=== PATIENT | female | born 1945 | race Caucasian/White ===

== ENCOUNTER 2018-02-13 13:06 | Emergency (ER) | payer MEDICARE, BC ==
[2018-02-13 13:56] VITALS: BP 147/68
--- NOTE | 2018-02-13 13:56 | UC ---
Shoulder Pain HPI - HPI Summary HPI Summary: On February 13 patient was pulling herself up into her son's truck With her left arm had a sudden onset of pain in her left shoulder. Beginning February 10 patient noticed decreased range of motion in her shoulder and continued pain tender to touch no deformity neuro motor and circulation intact distally no numbness or tingling distally - History of Current Complaint Chief Complaint: UCUpperExtremity Stated Complaint: LEFT SHOULDER COMPLAINT Time Seen by Provider: 02/13/18 13:50 Hx Obtained From: Patient ?: No Onset/Duration: Sudden Onset, Lasting Days - 3, Still Present Timing: Constant Severity Initially: Mild Severity Currently: Mild Location Of Pain: Is Discrete @ Pain Intensity: 4 Pain Scale Used: 0-10 Numeric Character: Throbbing, Spasmodic, Stiffness Aggravating Factor(s): Movement Alleviating Factor(s): OTC Meds Associated Signs And Symptoms: Positive: Negative Related History: Dominant Hand Right - Allergies/Home Medications Allergies/Adverse Reactions: Allergies Allergy/AdvReac Type Severity Reaction Status Date / Time No Known Allergies Allergy Verified 11/26/12 06:51 Home Medications: Home Medications Biotin 5,000 mcg PO BID 02/13/18 [History Confirmed 02/13/18] Oxybutynin TAB* [Ditropan TAB*] 5 mg PO BID 02/13/18 [History Confirmed 02/13/18 ] Terbinafine HCl 250 mg PO DAILY 02/13/18 [History Confirmed 02/13/18] amLODIPine TAB* [Norvasc 5 mg TAB*] 10 mg PO DAILY 02/13/18 [History Confirmed 02/13/18] PMH/Surg Hx/FS Hx/Imm Hx Previously Healthy: No Endocrine History: Diabetes, Dyslipidemia Cardiovascular History: Hypertension GI/ History: Gastroesophageal Reflux - Surgical History Surgical History: Yes Surgery Procedure, Year, and Place: DILATION AND CURETTAGE, HYSTEROSCOPY, X 3, [facility]. 1967, 1971 CSECTION X 2, [facility]. 1984, 1986 CSECTION X 2, [facility]. Left knee replacement - Family History Known Family History: Positive: None - Social History Occupation: Retired Lives: With Family Alcohol Use: None Substance Use Type: None Smoking Status (MU): Never Smoked Tobacco Review of Systems Constitutional: Negative Skin: Negative Eyes: Negative ENT: Negative Respiratory: Negative Cardiovascular: Negative Gastrointestinal: Negative Genitourinary: Negative Motor: Decreased ROM - left shoulder Neurovascular: Negative Musculoskeletal: Arthralgia - Left shoulder Neurological: Negative Psychological: Negative Is Patient Immunocompromised?: No All Other Systems Reviewed And Are Negative: Yes Physical Exam Triage Information Reviewed: Yes Appearance: Well-Appearing, Well-Nourished, Pain Distress Vital Signs: Initial Vital Signs Temp 97.7 F 02/13/18 13:42 Pulse 69 02/13/18 13:42 Resp 20 02/13/18 13:42 BP 147/68 02/13/18 13:42 Pulse Ox 96 02/13/18 13:42 Vital Signs Reviewed: Yes Eye Exam: Normal Eyes: Positive: Conjunctiva Clear ENT Exam: Normal ENT: Positive: Normal ENT inspection, Hearing grossly normal. Negative: Nasal drainage, Trismus, Muffled voice, Hoarse voice Dental Exam: Normal Neck exam: Normal Neck: Positive: Supple, Nontender, No Lymphadenopathy Respiratory Exam: Normal Respiratory: Positive: Chest non-tender, Lungs clear, Normal breath sounds, No respiratory distress, No accessory muscle use Cardiovascular Exam: Normal Cardiovascular: Positive: RRR, Pulses Normal, Brisk Capillary Refill Musculoskeletal Exam: Other Musculoskeletal: Positive: No Edema, Strength Limited @ - Left shoulder, ROM Limited @ - Left shoulder Neurological Exam: Normal Neurological: Positive: Alert, Muscle Tone Normal Psychological Exam: Normal Skin Exam: Normal Diagnostics - Radiology No standard instances Xray Interpretation: Positive (See Comments) Radiology Interpretation Completed By: Radiologist - Arthritis in the AC joint Shoulder Course/Dx - Course Assessment/Plan: Patient states she takes Tylenol ibuprofen for pain. Plan will be to follow up with Dr. Ravi, recheck blood pressure with PCP - Differential Dx/Diagnosis Provider Diagnoses: Left shoulder pain, hypertension poor control Discharge - Sign-Out/Discharge Documenting (check all that apply): Discharge - Discharge Plan Condition: Stable Disposition: HOME Patient Education Materials: Osteoarthritis (ED), Hypertension (ED), Shoulder Pain (ED) Referrals: Juan R Ravi MD [Medical Doctor] - 3 Days Heath Aguilar MD [Primary Care Provider] - 2 Weeks - Billing Disposition and Condition Condition: STABLE Disposition: HOME
--- NOTE | 2018-02-13 14:25 | RAD ---
Indication: Left shoulder pain. 4 views of left shoulder demonstrates AC joint arthritis. There is no fracture noted. No other bone or joint abnormality is noted. IMPRESSION: AC joint arthritis without evidence of fracture.
== END 2018-02-13 14:38 | disposition home or self-care (01) ==
LOC: UCCORT 13:06
DX: M25.512 Pain in left shoulder (principal); X50.0XXA Overexertion from strenuous movement or load, initial encounter; Y93.89 Activity, other specified; Y92.9 Unspecified place or not applicable; I10 Essential (primary) hypertension; E11.9 Type 2 diabetes mellitus without complications
CPT/HCPCS: 99212; G0463

== ENCOUNTER → 2018-05-15 05:57 | Day surgery (SDC) | payer MEDICARE, BC ==
--- NOTE | 2018-04-25 20:20 | HP ---
CC: Heath Aguilar MD, [place] * ADMISSION HISTORY AND PHYSICAL: DATE OF ADMISSION: 05/15/18 ATTENDING SURGEON: Min Torres MD * (DAVID Miranda, dictating). CHIEF COMPLAINT: Ventral incisional hernia. HISTORY OF PRESENT ILLNESS: This is a 72-year-old female who has known of a ventral hernia for approximately the past 2-1/2 years. She first noticed it at home as a bulge in the mid abdomen to the left of the upper end of her prior C- section scar. It has remained essentially the same and she denies any pain or other associated symptoms. It is sometimes tender when pressed upon. She has not had anything to suggest incarceration or strangulation. An ultrasound done in September 2015 confirmed the presence of what appeared to be a fat containing hernia. She had been seen by Dr. Torres on a couple of occasions including soon after the discovery of the hernia a year ago in October and October of this year. Exam has remained about the same with a mildly tender mass as described above, partially reducible, and recommendation made for repair. The patient states that she understands the indications for repair and the methods thereof, as well as the risks, benefits and alternatives. She would like to proceed as scheduled with laparoscopic repair of ventral incisional hernia with mesh. Dr. Torres was also in to see her today for reexamination and confirmation plan. PAST MEDICAL HISTORY: Hypertension, type 2 diabetes, GERD, osteoarthritis, hyperlipidemia, overactive bladder, morbid obesity. She denies history of heart disease or chronic lung disease. No personal history of bleeding or blood clot problems. PAST SURGICAL HISTORY: Previous surgeries include x4, all via lower midline incision; left total knee arthroplasty in 2015; tonsillectomy remotely. CURRENT MEDICATIONS: 1. Metoprolol succinate extended release 25 mg b.i.d. 2. Valsartan/hydrochlorothiazide 320/12.5 once daily. 3. Amlodipine 10 mg once daily. 4. Rosuvastatin 5 mg once daily. 5. Metformin 500 mg 2 tablets b.i.d. 6. Glyburide 5 mg one half tablet b.i.d. 7. Oxybutynin 5 mg b.i.d. 8. Pantoprazole 40 mg once daily. 9. Multivitamin once daily. 10. Biotin 5000 mcg b.i.d. DRUG ALLERGIES: None known. FAMILY HISTORY: Negative for anesthesia problems, bleeding or clotting disorders. SOCIAL HISTORY: The patient is . 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 She denies use of tobacco, alcohol, or other recreational drugs. REVIEW OF SYSTEMS: General: No recent constitutional symptoms or acute illnesses. HEENT: She does have a pending appointment for her eyes and possible future cataract surgery. Cardiovascular: She is treated for hypertension. No chest pain, palpitations, history of MD or angina. Respiratory: No history of asthma, chronic cough, or shortness of breath. GI: GERD symptoms, controlled. No lower GI symptoms. I did not inquire as to her most recent colonoscopy. : No problems reported. Endocrine: Type 2 diabetes. No thyroid dysfunction. PHYSICAL EXAMINATION GENERAL: Morbidly obese female, in no acute distress. VITAL SIGNS: Height 60 inches, weight 241 pounds, BMI of 47. Blood pressure 140/82, pulse 74, respirations 18. HEENT: Pupils equal, round, and reactive. EOMs intact. No conjunctival pallor. Oropharynx: She has a partial upper denture. Remaining teeth in fair to good repair. No intraoral lesions. NECK: No thyromegaly or masses. No palpable cervical or supraclavicular lymphadenopathy. BREASTS: Not examined. LUNGS: Clear to auscultation. No rales or wheezes. HEART: Regular rate and rhythm. No murmur appreciated. ABDOMEN: Obese. Well-healed but scarred lower midline incision from prior C- sections. There is a visible and palpable bulge to the left of midline at the superior aspect of the incisions. This is mildly tender to deep palpation and feels to be only partially reducible. There are no other palpable masses or organomegaly. GENITALIA: Not done. RECTAL: Not done. BACK: No spinous process or CVA tenderness. EXTREMITIES: No edema. NEUROLOGICAL: Grossly intact. SKIN: Warm and dry. No suspicious rashes or lesions noted. IMPRESSION: Ventral incisional hernia. PLAN: Laparoscopic repair of ventral incisional hernia with mesh. DAVID MIRANDA [id number]/[facility] #: [id number] M[facility]ER HOSPITALSilvia
[~2018-05-15 05:57] MED LIST: Atracurium* 10 MG/ML 10 ML VIAL ONE; Buffered Lidocaine 0.9% SYRIN* 5 ML/SYR SYRINGE INTRADERM ONE; Bupivacaine 0.25% W/EPI* 10 ML SDV ONE; Dexamethasone IV* 4 MG/ML 1 ML (4 MG) IV SLOW PU ONE; Dexamethasone IV* 4 MG/ML 1 ML (4 MG) ONE; EPHEDrine (Pressors)* 50 MG/ML VIAL ONE; Famotidine IV* 10 MG/ML 2 ML (20 mg) IV SLOW PU ONE; Famotidine IV* 10 MG/ML 2 ML (20 mg) ONE; Glycopyrrolate IV* 0.2 MG/ML 1 ML VIAL ONE; Heparin VIAL(*) 5000 UNITS/ML VIAL (FIVE THOUSAND) ONE; Ketorolac INJ* 30 MG/ML 1 ML VIAL ONE; Levalbuterol 0.63MG/3ML NEB* UNIT OF USE INH ONE; Metoprolol Succinate XL TAB* 25 MG PO ONE; Midazolam* 1 MG/ML 5 ML VIAL (5 MG) ONE; Naloxone* 0.4 MG/ML 1 ML VIAL IV PRN; Ondansetron INJ* 2 MG/ML VIAL IV PRN; Ondansetron INJ* 2 MG/ML VIAL ONE; Phenylephrine INJ* 10 MG/ML 1 ML VIAL (10 MG) ONE; Propofol* 10 MG/ML 20 ML BTL IV PUSH ONE; ceFAZolin 2 GM PREMIX (*) 2 GM/50 ML BAG IVPB ONE; fentaNYL* 50 MCG/ML 2 ML VIAL (100 MCG VIAL) IV PRN; fentaNYL* 50 MCG/ML 2 ML VIAL (100 MCG VIAL) ONE; fentaNYL* 50 MCG/ML 5 ML VIAL (250 MCG VIAL) ONE; oxyCODONE/Acetamin 5/325 MG* TAB ONE
[2018-05-15] MEDS: oxyCODONE/Acetamin 5/325 MG* TAB PO PRN ×2 (10:24→14:46)
[2018-05-15 14:52] VITALS: BP 118/70
--- NOTE | 2018-05-18 15:15 | OP ---
CC: [facility]; Dr. Heath Aguilar. OPERATIVE REPORT: DATE OF OPERATION: 05/15/18 DATE OF : 49 SURGEON: Min Torres MD TENDERIZER TENDER: DAVID Garcia ANESTHESIOLOGIST: Dr. Rowell ANESTHESIA: General anesthesia. PRE-OP DIAGNOSIS: Ventral incisional hernia. POST-OP DIAGNOSIS: Ventral incisional hernia. OPERATIVE PROCEDURE: Laparoscopic ventral hernia repair with mesh. ESTIMATED BLOOD LOSS: Minimal. FLUIDS: 2 L of crystalloid fluid given. SPECIMEN: None. INDICATIONS: Ms. Oneill is a 72-year-old female with ventral hernia, was seen as an outpatient and w as worked up. Plan was for a ventral hernia repair. DESCRIPTION OF PROCEDURE: I outlined the details of the procedure going over the risks, benefits, an d alternatives. Patient signed consent. She was marked, taken to the operating room, placed on the operating table in supine position. Preoperative antibiotics were given. Sequential devices were david jj on bilateral lower extremities. General anesthesia was induced. The patient's abdomen was prepp ed and draped in a standard surgical fashion. A time-out was performed. A subcostal incision was made at the right upper quadrant, this was deepened down to the anterior fas sara, which was elevated and a Veress needle was inserted into the abdominal cavity, which was then al lowed to insufflate to a pressure of 15 mmHg. The patient tolerated the insufflation well. Veress ne edle was then removed and a 12-mm trocar was inserted. The laparoscope was inserted through this. T here was no evidence of injury from the trocar insertion or from the Veress needle. Review of the abd omen showed omentum attached to the anterior abdominal wall. Additional trocars were then placed in the following positions, 5 mm in the right lower quadrant, 5 m m in the subxiphoid area. Attention was turned towards the anterior abdominal wall. Lysis of adhesions was carried out to take the omentum off the anterior abdominal wall and then we identified the hernia. The peritoneum at th e site was incised and the omentum that was inside the hernia was reduced in its entirety. The hernia sac was also reduced bluntly with traction and then this was removed. We did not send this as a specimen. Defect was evaluated, it was approximately 3.5 cm. We reapproximated this with interrupted 0 Prolene sutures inside the abdomen to realign that to bring these edges somewhat closer. Next, an Echo PS mesh Bard was opened up, this was a 6-inch [place], this was rolled up in a typical f ashion after placing 2-0 Prolene suture on the site. Once it was into the abdomen, it was positioned in the appropriate fashion that we wanted it. I used a suture passer to take the Prolene sutures out from the both lateral aspects. This was then brought up into the abdomen. We had also utilized the Echo PS system making an incision at the mid hernia site. This mesh was then completely tacked with Ethicon Securestrap, it laid without being too tight. Ther e was no wrinkling. We did drop the pressure down to 12 mmHg prior to tacking this. Review of the abdomen showed portion of the omentum seemed somewhat dusky from the dissection. We to ok this off with LigaSure device, it was noted to be approximately 3 x 3 cm of omentum. This was rem sandi with an endoscopic retrieval bag through the right upper quadrant port site. Review of the abdomen showed no bleeding, no enteric contents. Abdomen was allowed to collapse. Tro cars removed under direct vision and all 4 skin incisions were reapproximated with 4-0 Monocryl subcu ticular sutures. It should be noted that additional 5 mm trocar was inserted on the left side to com plete the tacking. Steri-Strips were applied and the patient was woken up in the OR, and transferred to the PACU in stable condition. [id number]/[facility] #: [id number]
== END | disposition home or self-care (01) ==
LOC: OR 05:57
PROVIDERS: ATTEND Surgery
DX: K43.2 Incisional hernia without obstruction or gangrene (principal); E11.9 Type 2 diabetes mellitus without complications; Z79.84 Long term (current) use of oral hypoglycemic drugs; I10 Essential (primary) hypertension; K21.9 Gastro-esophageal reflux disease without esophagitis; E78.5 Hyperlipidemia, unspecified; E66.01 Morbid (severe) obesity due to excess calories; M19.90 Unspecified osteoarthritis, unspecified site
CPT/HCPCS: A9270-GY; C1776; C1781; J0690; J1100; J1644; J1885; J2250; J2405; J2704; J3010

== ENCOUNTER 2018-11-04 07:06 | Emergency (ER) | payer MEDICARE, BC ==
[2018-11-04 07:27] VITALS: BP 149/63
--- NOTE | 2018-11-04 07:47 | UC ---
Back Pain HPI - HPI Summary HPI Summary: SUDDEN ONSET 2 DAYS AGO OF RIGHT MID/UPPER BACK PAIN. THOUGHT MAYBE SHE ATE SOMETHING BAD THAT DAY SO TOOK PEPTOBISMOL AND IMMEDIATELY VOMITED. VOMITED AGAIN AFTER TAKING NYQUIL. DENIES ABDOMINAL PAIN OR BLOATING. NO URINARY SX. NO FEVER. - History of Current Complaint Chief Complaint: UCBackPain Stated Complaint: RT SHOULDER PAIN Time Seen by Provider: 11/04/18 07:24 Hx Obtained From: Patient Onset/Duration: Sudden Onset, Lasting Days, Still Present Timing: Constant Severity Initially: Moderate Severity Currently: Moderate Pain Intensity: 7 Pain Scale Used: 0-10 Numeric Back Pain: Is Discrete @ - RIGHT FLANK Character: Sharp Aggravating Factor(s): Nothing Alleviating Factor(s): Nothing Associated Signs And Symptoms: Positive: Flank Pain. Negative: Swelling, Redness, Bruising, Fever, Abdominal Pain - Allergies/Home Medications Allergies/Adverse Reactions: Allergies Allergy/AdvReac Type Severity Reaction Status Date / Time No Known Allergies Allergy Verified 11/04/18 07:19 Home Medications: Home Medications Ibuprofen TAB* [Advil TAB*] 400 mg PO Q6H PRN 11/04/18 [History Confirmed ] Irbesartan [Avapro] 75 mg PO 11/04/18 [History] glyBURIDE TAB* [Diabeta TAB*] 5 mg PO DAILY 11/04/18 [History Confirmed 11/04/18 ] PMH/Surg Hx/FS Hx/Imm Hx Endocrine History: Diabetes Cardiovascular History: Hypertension GI/ History: Gastroesophageal Reflux - Surgical History Surgical History: Yes Surgery Procedure, Year, and Place: DILATION AND CURETTAGE, HYSTEROSCOPY, X 3, [facility]. 1967, 1971 CSECTION X 2, [facility]. 1984, 1986 CSECTION X 2, [facility]. Left knee replacement-ABDOMEN. HERNIA REPAIR WITH MESH - Family History Known Family History: Positive: None - Social History Alcohol Use: None Substance Use Type: None Smoking Status (MU): Never Smoked Tobacco Have You Smoked in the Last Year: No Review of Systems All Other Systems Reviewed And Are Negative: Yes Constitutional: Positive: Negative Skin: Positive: Negative Respiratory: Positive: Negative Cardiovascular: Positive: Negative Gastrointestinal: Positive: Abdominal Pain, Vomiting, Nausea Genitourinary: Positive: Negative Physical Exam Triage Information Reviewed: Yes Appearance: Well-Appearing, No Pain Distress, Well-Nourished Vital Signs: Initial Vital Signs Temp 97.7 F 11/04/18 07:22 Pulse 70 11/04/18 07:22 Resp 16 11/04/18 07:22 BP 149/63 11/04/18 07:22 Pulse Ox 100 11/04/18 07:22 Laboratory Tests 11/04/18 07:46 POC Urine Color Yellow POC Urine Clarity Clear POC Urine pH 7.0 POC Ur Specif [place] 1.020 POC Urine Protein Negative POC Ur Glucose (UA) Trace A POC Urine Ketones Negative POC Urine Blood Negative POC Urine Nitrite Negative POC Urine Bilirubin Negative POC Urine Urobilinogen 0.2 POC U Leukocyte Esteras 2+ A Vital Signs Reviewed: Yes Eyes: Positive: Conjunctiva Clear ENT: Positive: Hearing grossly normal Neck: Positive: Supple Respiratory Exam: Normal Cardiovascular Exam: Normal Abdomen Description: Positive: Soft, CVA Tenderness (R) - EQUIVOCAL. Negative: CVA Tenderness (L), Distended, Guarding Musculoskeletal: Positive: No Edema Neurological: Positive: Alert Psychological: Positive: Age Appropriate Behavior Skin: Negative: Rashes Diagnostics - Radiology CXR Radiology Interpretation Completed By: Radiologist Summary of Radiographic Findings: UNREMARKABLE Back Pain Course/Dx - Course Course Of Treatment: 2+ LEUKS ON URINE DIP. WILL TX WITH BACTRIM FOR POSSIBLE UTI. URINE SENT FOR CX. CXR UNREMARKABLE. F/U PCP IF SX PERSIST. TO ER IF SX WORSEN. - Differential Dx/Diagnosis Provider Diagnosis: Right flank pain Discharge - Sign-Out/Discharge Documenting (check all that apply): Patient Departure All imaging exams completed and their final reports reviewed: Yes - Discharge Plan Condition: Stable Disposition: HOME Prescriptions: Sulfamethox/Trimethoprim DS* [Bactrim DS 800/160 TAB*] 1 tab PO BID #10 tab Patient Education Materials: Flank Pain (ED) Referrals: Heath Aguilar MD [Primary Care Provider] - If Needed Additional Instructions: UNCLEAR ETIOLOGY OF YOUR SYMPTOMS TODAY. YOU DO HAVE SOME BACTERIA IN YOUR URINE SO WILL GO AHEAD AND TREAT WITH ANTIBIOTICS FOR POSSIBLE URINARY TRACT INFECTION. CHEST X-RAY TODAY UNREMARKABLE. IF YOUR SYMPTOMS PERSIST FOLLOW-UP WITH YOUR PCP FOR FURTHER EVALUATION. GO TO THE ED WITHOUT FAIL IF YOU DEVELOP WORSENING PAIN, FEVER, PERSISTENT NAUSEA/VOMITING, ABDOMINAL PAIN OR ANY OTHER CONCERNING SYMPTOMS. - Billing Disposition and Condition Condition: STABLE Disposition: Home
== END 2018-11-04 08:16 | disposition home or self-care (01) ==
LOC: UCCORT 07:06
DX: R10.9 Unspecified abdominal pain (principal); E11.9 Type 2 diabetes mellitus without complications; Z79.84 Long term (current) use of oral hypoglycemic drugs; I10 Essential (primary) hypertension
CPT/HCPCS: 71046; 81003; 87086; 99212; G0463

== ENCOUNTER 2018-11-07 14:07 | Emergency (ER) | payer MEDICARE, BC ==
--- NOTE | 2018-11-07 14:24 | ED ---
Back Pain - HPI Summary HPI Summary: Patient is a 72 y/o F presenting to ED with complaints of back pain under her right shoulder blade and right flank pain. Pain onset five days ago. She went to [facility] care three days ago, had CXR and UA. ABX were started, but this has provided no relief in Sx. Patient denies any recent exertion. At this time, she characterizes pain as dull but notes that initially it had been sharp/ stabbing. Patient notes some pain with movement. She reports vomiting three days ago. No rash noted. On triage, pain is rated 4/10, nothing is noted to aggravate/alleviate Sx. PSHx of section, left knee replacement. She has been taking extra-strength Tylenol. Home medications, allergies, and nurse' s note reviewed. - History of Current Complaint Chief Complaint: EDFlankPain Stated Complaint: BACK PAIN Time Seen by Provider: 11/07/18 14:17 Hx Obtained From: Patient Onset/Duration: Lasting Days - five days ago pain onset, Still Present Onset/Duration: Started Days Ago - five days ago pain onset, Still Present Timing: Constant, Lasting Days - five days ago pain onset Back Pain Location: Is Discrete @ - right flank, at back below right shoulder blade Severity Currently: Moderate - 4/10 Pain Intensity: 4 Pain Scale Used: 0-10 Numeric - 4/10 Character: Sharp - initially, Dull - currently Aggravating Symptom(s): Nothing Alleviating Symptom(s): Nothing Associated Signs And Symptoms: Positive: Flank Pain - right, Other - POSITIVE - VOMITING, BACK PAIN BELOW RIGHT SHOULDER BLADE; NEGATIVE - RASH - Allergies/Home Medications Allergies/Adverse Reactions: Allergies Allergy/AdvReac Type Severity Reaction Status Date / Time No Known Allergies Allergy Verified 11/07/18 14:13 PMH/Surg Hx/FS Hx/Imm Hx Endocrine/Hematology History: Reports: Hx Diabetes Denies: Hx Bone Marrow Disease, Hx Sickle Cell Disease, Hx Anemia Cardiovascular History: Reports: Hx Coronary Artery Disease - CHOLESTEROL CONTROL WITH MEDICATION, Hx Hypertension - CONTROL WITH MEDICATION, Other Cardiovascular Problems/Disorders - HIGH CHOLESTEROL GI History: Reports: Hx Gastroesophageal Reflux Disease - ACID REFLUX, Other GI Disorders - CURRENT- INCISIONAL HERNIA History: Reports: Other Problems/Disorders - OVERACTIVE BLADDER Musculoskeletal History: Reports: Hx Arthritis - BILATERAL KNEES, Other Musculoskeletal History - LEFT TKR 04/2015 Sensory History: Reports: Hx Contacts or Glasses - GLASSES Denies: Hx Cataracts, Hx Glaucoma, Hx Hearing Aid Opthamlomology History: Reports: Hx Contacts or Glasses - GLASSES Denies: Hx Cataracts, Hx Glaucoma - Cancer History Hx Chemotherapy: No Hx Radiation Therapy: No - Surgical History Surgery Procedure, Year, and Place: DILATION AND CURETTAGE, HYSTEROSCOPY, X 3, [facility]. 1967, 1971 CSECTION X 2, [facility]. 1984, 1986 CSECTION X 2, [facility]. Left knee replacement-ABDOMEN. HERNIA REPAIR WITH MESH Hx Anesthesia Reactions: No - PATIENT STATES SHE WILL REFUSE ANYTHING IN HER BACK, GENERAL ONLY Infectious Disease History: No Infectious Disease History: Denies: Traveled Outside the [place] in Last 30 Days - Family History Known Family History: Negative: Blood Disorder - Social History Alcohol Use: None Substance Use Type: Reports: None Smoking Status (MU): Never Smoked Tobacco Have You Smoked in the Last Year: No Review of Systems Positive: Vomiting Positive: flank pain - RIGHT Positive: Other - POSITIVE - BACK PAIN BELOW RIGHT SHOULDER BLADE Negative: Rash All Other Systems Reviewed And Are Negative: Yes Physical Exam - Summary Physical Exam Summary: Appearance: Well appearing, no pain distress Skin: warm, dry, reflects adequate perfusion Head/face: normal Eyes: EOMI, LIVIA ENT: mucous membranes moist Neck: supple, non-tenderf Respiratory: CTA, breath sounds present Cardiovascular: RRR, pulses symmetrical Abdomen: non-tender, soft Bowel Sounds: present Musculoskeletal: strength/ROM intact; tenderness of right lumbar musculatory area, no CVA tenderness, no LE edema Neuro: normal, sensory motor intact, A&Ox3 Triage Information Reviewed: Yes Vital Signs On Initial Exam: Initial Vitals Temp Pulse Resp BP Pulse Ox 96.6 F 68 17 155/82 98 11/07/18 14:09 11/07/18 14:09 11/07/18 14:09 11/07/18 14:09 11/07/18 14:09 Vital Signs Reviewed: Yes Diagnostics - Vital Signs Vital Signs Temp Pulse Resp BP Pulse Ox 11/07/18 14:09 96.6 F 68 17 155/82 98 - Laboratory Lab Statement: Any lab studies that have been ordered have been reviewed, and results considered in the medical decision making process. - CT abd/pel ct CT Interpretation Completed By: Radiologist Summary of CT Findings: IMPRESSION: #. Negative for urolithiasis or hydronephrosis. #. RIGHT abdomen supraumbilical omental fat-containing ventral hernia exits through a 0.9. x 1.2 cm fascia defect and measures up to 3.1 cm transverse by 1.4 cm AP by 2.5 cm. cephalocaudal. Mild increased density in the fat consistent with edema/inflammation. #. Normal appendix documented. No pathologic process of the alimentary tract evident. This report was reviewed by ED physician. - Ultrasound No standard instances Ultrasound Interpretation Completed By: ED Physician Summary of Ultrasound Findings: Bedside US: no significant hydronephrosis at right kidney. Re-Evaluation - Re-Evaluation First Eval Re-Evaluation Time: 14:30 Comment: Reviewed urine culture results, no growth. Second Eval Re-Evaluation Time: 16:50 Comment: Results of labs and tests were discussed with patient, she is agreeable with discharge to home. Back Pain Course/Dx - Course Course Of Treatment: Nurse's notes reviewed. Bedside ultrasound performed failed to demonstrate any hydronephrosis. Patient had a CT scan which ruled out kidney stones. Appendix was normal. Her urinalysis recently had a culture done that grew no bacteria. Pain likely muscular as pain with movement, pain with palpation -- She is treated symptomatically with improvement. A Lidoderm patches placed over the muscular tenderness and her right lumbar back. She is discharged to follow up with primary care physician. - Diagnoses Differential Diagnosis/HQI/PQRI: Positive: Neoplasm, Renal Colic, Other - Abdominal aortic aneurysm, gallbladder disease, appendicitis, low back pain Provider Diagnoses: Lumbar strain, Ventral hernia Discharge - Sign-Out/Discharge Documenting (check all that apply): Patient Departure - discharge - Discharge Plan Condition: Improved Disposition: HOME Prescriptions: Metaxalone TAB* [Skelaxin TAB*] 800 mg PO TID #10 tab Patient Education Materials: Low Back Strain (ED) Referrals: Heath Aguilar MD [Primary Care Provider] - Additional Instructions: Ice, range of motion exercises, Tylenol/ibuprofen as needed for discomfort. Follow-up with primary care physician. Call tomorrow for an appointment. medicare biller may also help. Return if worse, fevers, new symptoms or other concerns. You may discontinue antibiotic. - Billing Disposition and Condition Condition: IMPROVED Disposition: Home - Attestation Statements Document Initiated by Scribe: Yes Documenting Scribe: MILLER DELEON Provider For Whom Scribe is Documenting (Include Credential): JONELLE JOHNSON MD Scribe Attestation: I, MILLER DELEON , scribed for JONELLE JOHNSON MD on 11/07/18 at 1703. Scribe Documentation Reviewed: Yes Provider Attestation: The documentation as recorded by the MILLER goel accurately reflects the service I personally performed and the decisions made by me, JONELLE JOHNSON MD Status of Scribe Document: Viewed
[2018-11-07] MEDS ORDERED: Naproxen TAB* 250 MG PO ONE (14:30)
[2018-11-07] MEDS ORDERED: Cyclobenzaprine TAB* 10 MG PO ONE (14:30)
[2018-11-07] MEDS ORDERED: Lidocaine PATCH 5%* 1 PATCH TRANSDERM ONE (16:45)
[2018-11-07 17:21] VITALS: BP 139/74
[2018-11-07] MEDS ORDERED: Lidocaine Patch REMOVE* 1 NOTE MISC SCH (21:00)
== END 2018-11-07 17:20 | disposition home or self-care (01) ==
LOC: ED 14:07
DX: S39.012A Strain of muscle, fascia and tendon of lower back, initial encounter (principal); K43.9 Ventral hernia without obstruction or gangrene; E11.9 Type 2 diabetes mellitus without complications; I25.10 Atherosclerotic heart disease of native coronary artery without angina pectoris; K21.9 Gastro-esophageal reflux disease without esophagitis; X58.XXXA Exposure to other specified factors, initial encounter; Y92.9 Unspecified place or not applicable
CPT/HCPCS: 74176; 99283; A9270-GY

== ENCOUNTER → 2019-08-08 06:35 | Day surgery (SDC) | payer MEDICARE, BC ==
[~2019-08-08 06:35] MED LIST changes: -Atracurium* 10 MG/ML 10 ML VIAL ONE; -Buffered Lidocaine 0.9% SYRIN* 5 ML/SYR SYRINGE INTRADERM ONE; +Buffered Lidocaine 1% SYRIN* 1 ML/SYRINGE INTRADERM ONE; +Bupivacaine 0.25% SDV PF* 10 ML VIAL INJ ONE; -Bupivacaine 0.25% W/EPI* 10 ML SDV ONE; +Bupivacaine 0.5%* 50 ML MDV VIAL ONE; -Dexamethasone IV* 4 MG/ML 1 ML (4 MG) IV SLOW PU ONE; -EPHEDrine (Pressors)* 50 MG/ML VIAL ONE; +Famotidine IV* 10 MG/ML 2 ML (20 mg) IV ONE; -Famotidine IV* 10 MG/ML 2 ML (20 mg) IV SLOW PU ONE; -Glycopyrrolate IV* 0.2 MG/ML 1 ML VIAL ONE; +KETAMINE HCL* 50 MG/ML 10 ML VIAL ONE; +Lactated Ringers 1000 ML Bag* 1,000 ML IV SCH; -Levalbuterol 0.63MG/3ML NEB* UNIT OF USE INH ONE; +Lidocaine 2% PF * 5 ML VIAL ONE; +Lidocaine 2.5%/Prilocain 2.5%* 5 GM TUBE ONE; -Metoprolol Succinate XL TAB* 25 MG PO ONE; -Phenylephrine INJ* 10 MG/ML 1 ML VIAL (10 MG) ONE; -Propofol* 10 MG/ML 20 ML BTL IV PUSH ONE; +Propofol* 10 MG/ML 20 ML BTL ONE; +VASOPRESSIN 20 UNITS/ML 1 ML VIAL ONE; -ceFAZolin 2 GM PREMIX (*) 2 GM/50 ML BAG IVPB ONE; +ceFAZolin 2 GM PREMIX in ORs 2 GM/50 ML BAG ONE; -fentaNYL* 50 MCG/ML 5 ML VIAL (250 MCG VIAL) ONE; -oxyCODONE/Acetamin 5/325 MG* TAB ONE
--- NOTE | 2019-08-08 15:56 | BRIEFOPN ---
Brief Operative/Procedure Note - Operation Details Pre-Op Diagnosis: Right breast cancer Post-Op Diagnosis: same Procedures: excision right breast cancer (after needle--localization); sentinel lymph node biopsy Surgeon(s)/Proceduralists: Carmine. Assist: FADI Sarabia; DAVID Agrawal Anesthesia: GET Estimated Blood Loss: < 50 ml; Fluids: 1650 ml LR Findings: as above Specimen(s)/Culture(s) Description: Right breast tissue; sentinel lymph node(s) Complications: none
[2019-08-08 18:42] VITALS: BP 131/65
--- NOTE | 2019-08-08 22:04 | OP ---
CC: Dr. Heath Aguilar; [facility] * DATE OF OPERATION: 08/08/19 - [facility] DATE OF : 49 SURGEON: Suzanne Lou MD. ASSISTANTS: Myranda Sarabia NP and DAVID Miranda PRE-OP DIAGNOSIS: Right breast cancer. POST-OP DIAGNOSIS: Right breast cancer. OPERATIVE PROCEDURE: Needle localization, excision of right breast cancer, and sentinel lymph node biopsies. INDICATIONS: Ms. Oneill is a 73-year-old woman recently diagnosed with breast cancer, prompting the plan for surgical intervention. DESCRIPTION OF PROCEDURE: On the morning of surgery, she underwent needle localization and sentinel lymph node localization without difficulty. She was then brought to the operating room, placed on the OR table in the supine position and given general anesthesia. The right breast was prepped and draped in the usual sterile fashion taking care not to dislodge the localizing wire. The right axilla was prepped at the same time. After infiltrating with local anesthetic, a curvilinear elliptical incision encompassing the wire was made, and subcutaneous tissue was divided with electrocautery down to the level of the tip of the wire. The tissue was then removed from the breast and marked in the usual fashion and handed off as a specimen. Hemostasis was assured with electrocautery. Once this was adequate, the cavity was instilled with some additional local and then closed with 3-0 Vicryl in the subcutaneous layer and the skin was closed with 4-0 Prolene in a subcuticular fashion. The report shortly after that came back from Radiology indicating that some speculations from the tumor extended to the edge of the specimen, so the plan was made to return to the breast incision after the axillary procedure and remove some additional tissue from superiorly. Attention was therefore had been turned to the axilla, here a curvilinear incision was made after infiltrating with local anesthetic. Subcutaneous tissue was divided with electrocautery down to the level of the axillary fat pad. Using a navigator, the approximate location of the sentinel node was identified and dissection was carried out with a combination of sharp and blunt dissection using clips to control small lymphatic and blood vessels in the region. The first sentinel node was identified with in situ counts of around 1600. Once it was removed, its ex vivo counts were around 2000. There appeared to be an additional sentinel node , so a search was made for that. It was identified and had in situ counts of around 3000, and once it was removed, the ex vivo counts were around 2000. Additional, a third sentinel node was identified with in situ counts of 180 and ex vivo counts of 120. There was then a fourth sentinel node with in situ counts around 530 and ex vivo counts around 560. The axillary bed count after that fourth sentinel node was 8. The wound was irrigated with saline, some additional local was instilled into the wound and then closure of the axillary incision was accomplished with 3-0 Vicryl in the subcutaneous layer and the skin was closed with 4-0 Prolene in a subcuticular fashion. Attention was turned back to the breast incision. It was opened by cutting the stitches and then tissue from the superior margin of the cavity was excised using electrocautery. Once it was out, it was marked in the usual fashion with the additional marking of a single stitch indicating the surface that was apposed to the first breast specimen. This was then handed off. Hemostasis was achieved with electrocautery and once this appeared adequate, the wound was irrigated with saline. The irrigation fluid was suctioned out and then clips were placed in the cavity. Additional local was instilled into the cavity and then closure was accomplished with 3-0 Vicryl in the subcutaneous layer and the skin was closed with 4-0 Prolene in a subcuticular fashion. Steri-Strips and dry -sterile dressings were applied to both incisions. All sponge and instrument counts were correct. The patient tolerated the procedure well and was transferred to Recovery in a stable condition. [id number]/[facility] #: [id number] [place]
== END | disposition home or self-care (01) ==
LOC: SDS 06:35
PROVIDERS: ATTEND Surgery
DX: C50.911 Malignant neoplasm of unspecified site of right female breast (principal); I10 Essential (primary) hypertension; E11.9 Type 2 diabetes mellitus without complications; Z79.84 Long term (current) use of oral hypoglycemic drugs; M19.90 Unspecified osteoarthritis, unspecified site; Z68.42 Body mass index [BMI] 45.0-49.9, adult; K21.9 Gastro-esophageal reflux disease without esophagitis
CPT/HCPCS: 78195; 88307; 88342; A9270-GY; A9541; J0690; J1100; J1644; J1885; J2250; J2405; J2704; J3010; J3490

== ENCOUNTER 2020-01-10 15:26 | Emergency (ER) | payer MEDICARE, BC ==
[2020-01-10 16:09] VITALS: BP 145/83
--- NOTE | 2020-01-10 16:24 | UC ---
Complaint Female HPI - HPI Summary HPI Summary: C/O urinary frequency, urgency and dysuria starting today. No fevers or back pain. - History Of Current Complaint Stated Complaint: URINARY Hx Obtained From: Patient Onset/Duration: Sudden Onset, Lasting Hours - 5 Timing: Constant Severity Initially: Mild Severity Currently: Mild Pain Intensity: 0 Character: Burning Aggravating Factor(s): Urination Alleviating Factor(s): Nothing Associated Signs And Symptoms: Positive: Negative Related Hx: Similar Episode/Dx as: - UTI - Allergies/Home Medications Allergies/Adverse Reactions: Allergies Allergy/AdvReac Type Severity Reaction Status Date / Time No Known Allergies Allergy Verified 01/10/20 16:03 Home Medications: Home Medications Multivit-Min/FA/Lycopen/Lutein [Centrum Silver Tablet] 1 tab PO QAM 11/19/12 [ History Confirmed 01/10/20] Biotin 5,000 mcg PO BID 02/13/18 [History Confirmed 01/10/20] Oxybutynin TAB* [Ditropan TAB*] 5 mg PO BID 02/13/18 [History Confirmed 01/10/20 ] amLODIPine TAB* [Norvasc 5 mg TAB*] 10 mg PO QAM 02/13/18 [History Confirmed ] Metformin HCl [Glucophage] 1,000 mg PO BID 04/25/18 [History Confirmed 01/10/20] Metoprolol Succinate [Toprol Xl] 25 mg PO BID 04/25/18 [History Confirmed ] Pantoprazole Sodium 40 mg PO QAM 04/25/18 [History Confirmed 01/10/20] Rosuvastatin Calcium [Crestor] 5 mg PO QAM 04/25/18 [History Confirmed 01/10/20] Irbesartan [Avapro] 150 mg PO QAM 11/04/18 [History Confirmed 01/10/20] glyBURIDE TAB* [Diabeta TAB*] 5 mg PO QAM 11/04/18 [History Confirmed 01/10/20] Sitagliptin Phosphate [Januvia] 100 mg PO QAM 06/20/19 [History Confirmed ] Cephalexin CAP* [Keflex 500 CAP*] 500 mg PO TID #15 cap 01/10/20 [Rx] PMH/Surg Hx/FS Hx/Imm Hx Endocrine History: Diabetes Cardiovascular History: Hypertension Cancer History: Breast Cancer - Surgical History Surgical History: Yes Surgery Procedure, Year, and Place: DILATION AND CURETTAGE, HYSTEROSCOPY X 3, [facility]. 1967, 1971 CSECTION X 2, [facility]. 1984, 1986 CSECTION X 2, [facility]. Left knee replacement-. ABDOMEN HERNIA REPAIR WITH MESH. TOSILLECTOMY 1952. Right lumpectomy 08/08/19 - Family History Known Family History: Positive: Hypertension, Diabetes Negative: Blood Disorder - Social History Occupation: Employed Part-time Lives: With Family Alcohol Use: None Alcohol Amount: States 2 x /yr Substance Use Type: None Smoking Status (MU): Never Smoked Tobacco Have You Smoked in the Last Year: No Review of Systems All Other Systems Reviewed And Are Negative: Yes Genitourinary: Positive: Dysuria, Frequency, Urgency Is Patient Immunocompromised?: Yes - type 2 diabetes Physical Exam Triage Information Reviewed: Yes Appearance: Well-Appearing, No Pain Distress, Obese Vital Signs: Initial Vital Signs Temp 98.4 F 01/10/20 16:04 Pulse 82 01/10/20 16:04 Resp 16 01/10/20 16:04 BP 145/83 01/10/20 16:04 Pulse Ox 97 01/10/20 16:04 Vital Signs Reviewed: Yes Eyes: Positive: Conjunctiva Clear Neck exam: Normal Respiratory Exam: Normal Cardiovascular Exam: Normal Abdomen Description: Positive: Nontender. Negative: CVA Tenderness (R), CVA Tenderness (L), Peritoneal Signs Musculoskeletal Exam: Normal Neurological Exam: Normal Psychological Exam: Normal Skin Exam: Normal Complaint Female Dx - Differential Dx/Diagnosis Differential Diagnosis/HQI/PQRI: Appendicitis, Ureteral Stone, Urinary Tract Infection Provider Diagnosis: UTI (urinary tract infection), uncomplicated Discharge ED - Sign-Out/Discharge Documenting (check all that apply): Patient Departure All imaging exams completed and their final reports reviewed: No Studies - Discharge Plan Condition: Stable Disposition: HOME Prescriptions: Cephalexin CAP* [Keflex 500 CAP*] 500 mg PO TID #15 cap Patient Education Materials: Urinary Tract Infection in Women (ED) Referrals: Heath Aguilar MD [Primary Care Provider] - Additional Instructions: make sure to have probiotics while on the antibiotics. - Billing Disposition and Condition Condition: STABLE Disposition: Home
== END 2020-01-10 16:41 | disposition home or self-care (01) ==
LOC: UCCORT 15:26
DX: N39.0 Urinary tract infection, site not specified (principal); I10 Essential (primary) hypertension; E11.9 Type 2 diabetes mellitus without complications; Z85.3 Personal history of malignant neoplasm of breast; Z79.84 Long term (current) use of oral hypoglycemic drugs; Z79.899 Other long term (current) drug therapy
CPT/HCPCS: 81003; 87077; 87086; 87186; 99212; G0463